=== PATIENT | male | born 1935 | race Caucasian/White ===

== ENCOUNTER 2022-03-28 18:35 | Observation (INO) ==
[2022-03-28] MEDS ORDERED: cefTRIAXone 1,000 MG in 0.9 % Sodium Chloride 10 ML IVP ONE (19:41)
[2022-03-28] MEDS ORDERED: Melatonin 3 MG TABLET PO PRN (19:48)
[2022-03-28] MEDS ORDERED: Ondansetron ODT 4 MG TAB.RAPDIS SL PRN (19:48)
[2022-03-28] MEDS ORDERED: Naloxone 0.4 MG/ML INJ IVP PRN (19:48)
[2022-03-28] MEDS ORDERED: Acetaminophen 325 MG TABLET PO PRN (19:48)
[2022-03-28] MEDS ORDERED: *HR* OxyCODONE Immed Rel 5 MG TABLET PO PRN (19:48)
[2022-03-28] MEDS ORDERED: *HR* HYDROcodone/Acet 5/325 mg TABLET PO PRN (19:48)
[2022-03-28] MEDS: 0.9 % Sodium Chloride 1,000 ML IVC SCH (20:12)
[2022-03-29 05:37] LABS: Hematocrit 35.3 % (37.5-50.1); Hemoglobin 11.9 g/dL (12.9-16.9); Mean Corpuscular HGB Conc 33.7 g/dL (31.6-35.5); Mean Corpuscular Hemoglobin 29.2 pg (28.0-33.3); Mean Corpuscular Volume 86.5 fL (83.0-100.0); Platelet Count 250 K/mcL (140-400); Red Blood Count 4.08 M/mcL (4.19-5.50); Red Cell Distribution Width 12.3 % (11.5-14.5); White Blood Count 7.5 K/mcL (4.3-11.1)
[2022-03-29 05:57] LABS: Calcium 8.5 mg/dL (8.6-10.3); Magnesium 1.9 mg/dL (1.6-2.6); Potassium 3.7 mEq/L (3.5-5.1)
[2022-03-29] MEDS: 0.9 % Sodium Chloride 1,000 ML IVC SCH (07:48)
[2022-03-29] MEDS ORDERED: Iopamidol - 300 50 ML VIAL ONE (08:05)
[2022-03-29] MEDS ORDERED: Lidocaine -MPF 2% 5 ML VIAL ONE (08:07)
[2022-03-29] MEDS ORDERED: Ondansetron 4 MG/2 ML VIAL ONE (08:07)
[2022-03-29] MEDS ORDERED: *HR* Propofol 200 MG/20 ML VIAL IVP ONE (08:07)
[2022-03-29] MEDS ORDERED: *HR* FentaNYL (PF) 100 MCG/2 ML VIAL ONE (08:07)
[2022-03-29] MEDS ORDERED: Ondansetron 4 MG/2 ML VIAL IVP PRN ×2 (09:19→12:52)
[2022-03-29] MEDS ORDERED: EPHEDrine 50 MG/ML VIAL ONE (09:48)
[2022-03-29] MEDS: *HR* FentaNYL (PF) 100 MCG/2 ML VIAL IVP PRN ×3 (11:36→12:04)
[2022-03-29] MEDS ORDERED: *HR* OxyCODONE Immed Rel 5 MG TABLET PO PRN (12:52)
[2022-03-29] MEDS ORDERED: Melatonin 3 MG TABLET PO PRN (12:52)
[2022-03-29] MEDS ORDERED: *HR* HYDROcodone/Acet 5/325 mg TABLET PO PRN (12:52)
[2022-03-29] MEDS ORDERED: Acetaminophen 325 MG TABLET PO PRN (12:52)
[2022-03-29] MEDS ORDERED: 0.9 % Sodium Chloride 1,000 ML IVC SCH (12:52)
[2022-03-29] MEDS ORDERED: Naloxone 0.4 MG/ML INJ IVP PRN (12:52)
[2022-03-29] MEDS ORDERED: *HR* FentaNYL (PF) 100 MCG/2 ML VIAL IVP PRN (12:52)
[2022-03-29] MEDS ORDERED: Ondansetron ODT 4 MG TAB.RAPDIS SL PRN (12:52)
[2022-03-29] MEDS ORDERED: Hyoscyamine SL 0.125 MG TAB.SUBL SL PRN (14:03)
[2022-03-29] MEDS ORDERED: cefTRIAXone 1,000 MG in Water for inj. (sterile) 10 ML IVP SCH ×2 (16:00)
[2022-03-30 08:09] LABS: Basophils % 0.1 %; Hematocrit 34.8 % (37.5-50.1); Hemoglobin 11.7 g/dL (12.9-16.9); Immature Granulocytes % 0.6 % (0-4); Lymphocytes # 1.2 K/mcL (0.6-4.6); Lymphocytes % 9.7 %; Mean Corpuscular HGB Conc 33.6 g/dL (31.6-35.5); Mean Corpuscular Hemoglobin 29.2 pg (28.0-33.3); Mean Corpuscular Volume 86.8 fL (83.0-100.0); Mean Platelet Volume 9.7 fL (9.4-12.4); Monocytes # 1.2 K/mcL (0.0-1.3); Monocytes % 9.4 %; Neutrophils # 10.1 K/mcL (1.6-8.9); Platelet Count 287 K/mcL (140-400); Red Blood Count 4.01 M/mcL (4.19-5.50); Red Cell Distribution Width 12.5 % (11.5-14.5); Segmented Neutrophils % 80.2 %
[2022-03-30 08:10] LABS: White Blood Count 12.6 K/mcL (4.3-11.1)
[2022-03-30 08:28] LABS: Calcium 8.2 mg/dL (8.6-10.3); Magnesium 1.8 mg/dL (1.6-2.6); Potassium 3.7 mEq/L (3.5-5.1)
[2022-03-30 10:47] VITALS: O2SAT 98
[2022-03-30 14:24] VITALS: BP 123/64; PULSE 74; TEMP 97.7
== END 2022-03-30 15:01 | disposition home or self-care (01) ==
LOC: 3BNU 18:35 → EMEROOARM 18:35 → SUATTDRO 20:21 → 3BNU 21:06
PROVIDERS: ADMIT Internal Medicine; ATTEND Internal Medicine
PROC: UROTURP (2022-03-29 18:40)